=== PATIENT | female | born 1950 | race Caucasian/White ===

== ENCOUNTER 2019-12-16 09:26 | Emergency (ER) | payer OTHER ==
[~2019-12-16] VITALS: Ht 152.4 cm; Wt 43.1 kg
== END 2019-12-16 13:04 | disposition home or self-care (01) ==
LOC: ER 09:26
DX: I16.0 Hypertensive urgency (principal); I10 Essential (primary) hypertension

== ENCOUNTER 2021-08-19 03:12 | Inpatient (IN) | payer OTHER ==
[~2021-08-19] VITALS: Ht 154.9 cm; Wt 45.4 kg
[2021-08-19] MEDS ORDERED: HYZAAR 100-12.1 EACH (03:29)
[2021-08-29] MEDS ORDERED: XOPENEX0.63 MG/3 IH (14:15)
== END 2021-08-29 19:06 | disposition home or self-care (01) | DRG 438 ==
LOC: ER 03:12 → MEDI 10:54
PROVIDERS: ADMIT Internal Medicine; ATTEND Internal Medicine
PROC: BW21YZZ Computerized Tomography (CT Scan) of Abdomen and Pelvis using Other Contrast (ICD-10-PCS; 2021-08-19)
PROC: 02HV33Z Insertion of Infusion Device into Superior Vena Cava, Percutaneous Approach (ICD-10-PCS; 2021-08-19)
PROC: 5A09457 Assistance with Respiratory Ventilation, 24-96 Consecutive Hours, Continuous Positive Airway Pressure (ICD-10-PCS; 2021-08-21)
PROC: 4A12X4Z Monitoring of Cardiac Electrical Activity, External Approach (ICD-10-PCS; 2021-08-23)
PROC: B24BZZZ Ultrasonography of Heart with Aorta (ICD-10-PCS; principal; 2021-08-25)
DX: K85.80 Other acute pancreatitis without necrosis or infection (principal); J96.00 Acute respiratory failure, unspecified whether with hypoxia or hypercapnia; K86.3 Pseudocyst of pancreas; E87.1 Hypo-osmolality and hyponatremia; J44.1 Chronic obstructive pulmonary disease with (acute) exacerbation; R10.13 Epigastric pain; I10 Essential (primary) hypertension; D64.9 Anemia, unspecified; E86.0 Dehydration; D72.828 Other elevated white blood cell count; Z99.89 Dependence on other enabling machines and devices; F17.200 Nicotine dependence, unspecified, uncomplicated; Z20.822 Contact with and (suspected) exposure to COVID-19

== ENCOUNTER 2021-09-16 17:47 | Inpatient (IN) | payer OTHER ==
[~2021-09-16] VITALS: Ht 152.4 cm; Wt 45.4 kg
[~2021-09-16 17:47] MED LIST: HYZAAR 100-12.1 EACH; XOPENEX0.63 MG/3 IH
== END 2021-09-25 23:58 | DRG 439 ==
LOC: ER 17:47 → MEDI 09-17 12:38
PROVIDERS: ADMIT Internal Medicine; ATTEND Internal Medicine
PROC: 02HV33Z Insertion of Infusion Device into Superior Vena Cava, Percutaneous Approach (ICD-10-PCS; 2021-09-18)
PROC: 0DBW4ZX Excision of Peritoneum, Percutaneous Endoscopic Approach, Diagnostic (ICD-10-PCS; principal; 2021-09-20)
PROC: 30243N1 Transfusion of Nonautologous Red Blood Cells into Central Vein, Percutaneous Approach (ICD-10-PCS; 2021-09-20)
PROC: BF37ZZZ Magnetic Resonance Imaging (MRI) of Pancreas (ICD-10-PCS; 2021-09-20)
PROC: BW24ZZZ Computerized Tomography (CT Scan) of Chest and Abdomen (ICD-10-PCS; 2021-09-20)
DX: K85.80 Other acute pancreatitis without necrosis or infection (principal); K86.3 Pseudocyst of pancreas; K66.8 Other specified disorders of peritoneum; I10 Essential (primary) hypertension; C76.2 Malignant neoplasm of abdomen; D63.0 Anemia in neoplastic disease; D50.0 Iron deficiency anemia secondary to blood loss (chronic); Z20.822 Contact with and (suspected) exposure to COVID-19; D75.838 Other thrombocytosis

== ENCOUNTER 2021-09-26 20:14 | Inpatient (IN) | payer OTHER ==
[~2021-09-26] VITALS: Ht 154.9 cm
== END 2021-10-02 15:04 | disposition home or self-care (01) | DRG 439 ==
LOC: ER 20:14 → MEDI 09-27 11:15
PROVIDERS: ADMIT Internal Medicine; ATTEND Internal Medicine
PROC: 02HV33Z Insertion of Infusion Device into Superior Vena Cava, Percutaneous Approach (ICD-10-PCS; 2021-09-28)
PROC: 0DB78ZX Excision of Stomach, Pylorus, Via Natural or Artificial Opening Endoscopic, Diagnostic (ICD-10-PCS; principal; 2021-10-01)
PROC: 0DJD8ZZ Inspection of Lower Intestinal Tract, Via Natural or Artificial Opening Endoscopic (ICD-10-PCS; 2021-10-01)
DX: K85.80 Other acute pancreatitis without necrosis or infection (principal); K86.3 Pseudocyst of pancreas; K44.9 Diaphragmatic hernia without obstruction or gangrene; E86.0 Dehydration; E87.8 Other disorders of electrolyte and fluid balance, not elsewhere classified; Z20.822 Contact with and (suspected) exposure to COVID-19; I10 Essential (primary) hypertension